=== PATIENT | male | born 1930 | race Caucasian/White ===

== ENCOUNTER 2017-05-20 13:07 | Emergency (ER) | payer OTHER, MEDICARE ==
[~2017-05-20] VITALS: Ht 170.2 cm; Wt 72.1 kg
[~2017-05-20 13:07] MED LIST: A & D15 GM TP; ASPIR-LOW81 MG PO; DONEPEZIL HCL5 MG PO; DUONEB 2.5-0.5 M3 ML AEROSOL; FUROSEMIDE20 MG PO; LEVOFLOXACIN750 MG PO; LISINOPRIL20 MG PO; LOPRESSOR25 MG PO; PREDNISONE10 MG PO; QUETIAPINE FUM100 MG PO; TYLENOL EXTRA500 MG PO
[2017-05-20 15:24] VITALS: BP 123/47
== END 2017-05-20 15:30 | disposition home or self-care (01) ==
LOC: EME 13:07
DX: G30.9 Alzheimer's disease, unspecified (principal); F02.80 Dementia in other diseases classified elsewhere, unspecified severity, without behavioral disturbance, psychotic disturbance, mood disturbance, and anxiety; R60.9 Edema, unspecified; I95.9 Hypotension, unspecified; I25.10 Atherosclerotic heart disease of native coronary artery without angina pectoris; I10 Essential (primary) hypertension; Z96.651 Presence of right artificial knee joint
CPT/HCPCS: 99281; 99283

== ENCOUNTER 2017-08-25 03:51 | Emergency (ER) | payer OTHER, MEDICARE ==
[~2017-08-25] VITALS: Ht 165.1 cm; Wt 70.3 kg
[2017-08-25 05:41] VITALS: BP 140/61
== END 2017-08-25 05:44 | disposition home or self-care (01) ==
LOC: EME 03:51
DX: S09.90XA Unspecified injury of head, initial encounter (principal); R04.0 Epistaxis; W19.XXXA Unspecified fall, initial encounter; Y92.199 Unspecified place in other specified residential institution as the place of occurrence of the external cause; G30.9 Alzheimer's disease, unspecified; F02.80 Dementia in other diseases classified elsewhere, unspecified severity, without behavioral disturbance, psychotic disturbance, mood disturbance, and anxiety; I25.10 Atherosclerotic heart disease of native coronary artery without angina pectoris; I10 Essential (primary) hypertension; F41.9 Anxiety disorder, unspecified; Z99.3 Dependence on wheelchair; Z96.651 Presence of right artificial knee joint
CPT/HCPCS: 70450; 99281; 99284